=== PATIENT | female | born 1980 ===

== ENCOUNTER 2019-01-06 08:00 | Outpatient (CLI) | payer BC ==
--- NOTE | 2019-01-06 09:24 | ULT ---
LEFT BREAST DIAGNOSTIC ULTRASOUND: Indication: Palpable abnormality within the outer aspect of the left breast. Comparison: Diagnostic mammogram, 01-06-19 FINDINGS: No suspicious sonographic abnormality within the palpable regions of interest in the outer aspect of the left breast. IMPRESSION: No suspicious sonographic abnormality in the palpable region of interest in the left breast. Negative images should never deter biopsy findings or clinical exam. POS: OFF
--- NOTE | 2019-01-06 09:26 | ULT ---
RIGHT BREAST DIAGNOSTIC ULTRASOUND: Indication: Palpable abnormality in the outer aspect of the right breast. Comparison: Diagnostic mammograms of the breast, 816-19. FINDINGS: Submitted images demonstrate a small 3.6 mm cyst within the right breast 8 o'clock position. No addit ional focal abnormality is evident. IMPRESSION: BIRADS category 2 - benign. No suspicious sonographic abnormality within the palpable region of inter est in the lateral aspect of the right breast. Incidental 3.6 mm cyst is seen within the 8 o'clock po sition. Negative images should never deter biopsy findings or clinical exam. POS: OFF
--- NOTE | 2019-01-10 06:46 | MMO ---
Bilateral MAMMO Bilat Diag [facility]DI+MYA. CLINICAL HISTORY: Patient is 38 years old and is seen for diagnostic exam. The patient has no family history of breast cancer. The patient has no personal history of cancer. VIEWS: The views performed were: bilateral craniocaudal with tomosynthesis; bilateral mediolateral oblique with tomosynthesis; and bilateral mediolateral with tomosynthesis. FILMS COMPARED: The present examination has been compared to a prior imaging study performed at [facility] on 01/06/2019. MAMMOGRAM FINDINGS: The breasts are extremely dense, which may lower the sensitivity of mammography. There are no suspicious masses, suspicious calcifications, or new areas of architectural distortion. IMPRESSION: THERE IS NO MAMMOGRAPHIC EVIDENCE OF MALIGNANCY. NO MAMMOGRAPHIC OR SONOGRAPHIC ABNORMALITIES ARE PRESENT TO CORRELATE WITH THE SITE OF PALPABLE CONCERN. THE PATIENT WILL BE REFERRED BACK TO HER CLINICIAN FOR FURTHER CARE. BIOPSY SHOULD NOT BE PRECLUDED BY THE ABSCENCE OF IMAGING FINDINGS, IN THE SETTING OF CLINICAL CONCERN FOR MALIGNANCY. THE FINDINGS AND RECOMMENDATIONS WERE DISCUSSED WITH THE PATIENT PRIOR TO HER LEAVING THE CENTER. A ROUTINE FOLLOW-UP MAMMOGRAM AT AGE 41 IS RECOMMENDED. THE RESULTS OF THIS EXAM WERE SENT TO THE PATIENT. ACR BI-RADS Category 1 - Negative MAMMOGRAPHY NOTE: 1. A negative mammogram report should not delay a biopsy if a dominant of clinically suspicious mass is present. 2. Approximately 10% to 15% of breast cancers are not detected by mammography. 3. Adenosis and dense breasts may obscure an underlying neoplasm. Reported by: BERENICE GOYAL MD Electonically Signed: [id number]
== END 2019-01-06 08:01 | disposition home or self-care (01) ==
LOC: BICMAMMO 08:00
PROVIDERS: ATTEND Obstetrics & Gynecology
DX: N63.10 Unspecified lump in the right breast, unspecified quadrant (principal); N63.20 Unspecified lump in the left breast, unspecified quadrant
CPT/HCPCS: 77066; G0279